=== PATIENT | female | born 1935 | race Caucasian/White ===

== ENCOUNTER 2022-09-16 00:22 | Emergency (ER) | payer OTHER ==
[~2022-09-16] VITALS: Ht 167.6 cm; Wt 65.8 kg
[2022-09-16] MEDS ORDERED: HYDROMORPHONE 1 MG/1 ML DISP.SYRIN IV ONE (00:30)
[2022-09-16] MEDS ORDERED: ONDANSETRON 4 MG/2 ML VIAL IV ONE (00:30)
[2022-09-16] MEDS ORDERED: IV NORMAL SALINE 500 ML BAG IV ONE (00:30)
[2022-09-16] MEDS ORDERED: ONDANSETRON 4 MG/2 ML VIAL ONE (00:37)
[2022-09-16] MEDS ORDERED: HYDROMORPHONE 1 MG/1 ML DISP.SYRIN ONE (00:38)
[2022-09-16 00:41] LABS: HEMATOCRIT 41.6 % (31.2-41.9); MEAN CORPUSCULAR HEMOGLOBIN 29.9 uug (24.7-32.8); MEAN CORPUSCULAR VOLUME 90.2 fL (75.5-95.3); PLATELET COUNT (AUTO) 215 K/uL (179-408)
[2022-09-16 01:00] LABS: CARBON DIOXIDE 26 mmol/L (21-32); CHLORIDE 106 mmol/L (98-107); CREATININE 0.9 mg/dL (0.6-1.3); GLUCOSE 98 mg/dL (74-106); POTASSIUM 4.2 mmol/L (3.5-5.1); UREA NITROGEN, BLOOD 29 mg/dL (7-18)
[2022-09-16 01:06] LABS: ALANINE AMINOTRANSFERASE 12 U/L (14-59); ALKALINE PHOSPHATASE 77 U/L (50-136); ASPARTATE AMINOTRANSFERASE 7 U/L (15-37); BILIRUBIN,DIRECT 0.1 mg/dL (0.0-0.2); BILIRUBIN,TOTAL 0.2 mg/dL (0.2-1.0); TOTAL PROTEIN, SERUM 6.7 g/dL (6.4-8.2)
[2022-09-16] MEDS ORDERED: CEPH500T PO (02:03)
[2022-09-16] MEDS ORDERED: CEphaleXIN 500 MG CAPSULE PO ONE (02:15)
[2022-09-16] MEDS ORDERED: CEphaleXIN 500 MG CAPSULE ONE (02:26)
--- NOTE | 2022-09-16 02:45 | NUR ---
Received a call from [facility] ([facility]): [facility] - [id number]
--- NOTE | 2022-09-16 03:00 | NUR ---
Patient ambulated to the restroom with steady gait
--- NOTE | 2022-09-16 03:38 | NUR ---
[facility] AT BEDSIDE FOR TRANSPORT
--- NOTE | 2022-09-16 03:39 | NUR ---
Patient discharged to home in stable condition via [facility]. Written and verbal after care instructions given. Patient verbalizes understanding of instructions. Stressed follow up or return to ER for worsening s/s. Patient is a/ox4, NAD noted.
[2022-09-16 03:40] VITALS: BP 121/71
== END 2022-09-16 03:47 | disposition home or self-care (01) ==
LOC: ER 00:26
DX: S51.811A Laceration without foreign body of right forearm, initial encounter (principal); S51.812A Laceration without foreign body of left forearm, initial encounter; M79.605 Pain in left leg; M79.604 Pain in right leg; R07.89 Other chest pain; Z20.822 Contact with and (suspected) exposure to COVID-19; W06.XXXA Fall from bed, initial encounter; Y93.89 Activity, other specified; Y92.89 Other specified places as the place of occurrence of the external cause; Y99.8 Other external cause status
CPT/HCPCS: 99285; 96374; 71045; 96361; 96375; 87426; 80076; 80048; 85025; 85730; 84484; 36415; 93005; 73502 ×2; 73551 ×2; 73564 ×2; 73590 ×2; 73600 ×2; 72170; J2405; J1170; J7040; A4663